=== PATIENT | female | born 1945 | race Caucasian/White ===

== ENCOUNTER → 2018-07-10 | Outpatient (CLI) | payer MEDICARE, OTHER ==
[2018-07-10 11:43] LABS: ALANINE AMINOTRANSFERASE 38 U/L (12-78); ALBUMIN 3.9 g/dL (3.4-5.0); ANION GAP 9 mmol/L (5-15); CALCIUM 9.8 mg/dL (8.5-10.1); CHLORIDE 97 mmol/L (98-107); CREATININE 0.53 mg/dL (0.55-1.02)
[2018-07-10 11:46] LABS: ALKALINE PHOSPHATASE 98 U/L (45-117); BILIRUBIN,TOTAL 0.4 mg/dL (0.2-1.0); TOTAL PROTEIN 7.9 g/dL (6.4-8.2)
== END | disposition home or self-care (01) ==
LOC: STAR 10:03
PROVIDERS: ATTEND Surgery
DX: Z01.818 Encounter for other preprocedural examination (principal)
CPT/HCPCS: 36415; 80053; 93005

== ENCOUNTER → 2018-07-14 | Outpatient (CLI) | payer MEDICARE, OTHER ==
[~2018-07-14] MED LIST: CHOL2000 PO; ESTR42.53 TP; FLAX1CAP PO; LOSA25TA5 PO; LUTE6TAB PO; MELO15TA24 PO; OMEG-14 PO; PLAN450C PO; REMIFEMIN PO; UBID100C24 PO; WOMEN PO; [UNRECOGNIZED DRUG - OTHER] EACHEYE; [UNRECOGNIZED DRUG - OTHER] PO
== END | disposition home or self-care (01) ==
LOC: RAD 11:42
PROVIDERS: ATTEND Surgery
DX: E21.0 Primary hyperparathyroidism (principal); I10 Essential (primary) hypertension; M85.80 Other specified disorders of bone density and structure, unspecified site; Z87.891 Personal history of nicotine dependence; Z80.3 Family history of malignant neoplasm of breast
CPT/HCPCS: 78070; A9500

== ENCOUNTER 2018-09-06 14:23 | Inpatient (IN) | payer MEDICARE, OTHER ==
[~2018-09-06] VITALS: Ht 157.5 cm; Wt 57.1 kg
[~2018-09-06 14:23] MED LIST changes: +HYDR-3240 PO; -LOSA25TA5 PO; +LOSA25TA6 PO
[2018-09-06] MEDS ORDERED: ONDANSETRON 2MG/ML, 2ML IVPush ONE (15:30)
[2018-09-06] MEDS ORDERED: MAALOX/HYOSCYAMINE/LIDOCAINE 45 ML BTL PO ONE (15:30)
[2018-09-06] MEDS ORDERED: SODIUM CHLORIDE FLUSH 10ML SYR IVF ONE (15:30)
[2018-09-06] MEDS ORDERED: FAMOTIDINE 20 MG/2 ML IVP ONE (15:30)
[2018-09-06] MEDS ORDERED: SODIUM CHLORIDE 0.9% 1,000ML IVBOLUS ONE (15:30)
[2018-09-06] MEDS ORDERED: ONDANSETRON 2MG/ML, 2ML ONE (15:35)
[2018-09-06] MEDS ORDERED: FAMOTIDINE 20 MG/2 ML ONE (15:36)
[2018-09-06] MEDS ORDERED: MAALOX/HYOSCYAMINE/LIDOCAINE 45 ML BTL ONE (15:36)
[2018-09-06 15:38] LABS: BASOPHILS # (AUTO) 0.02 x10^3/uL (0-0.1); BASOPHILS % (AUTO) 0 % (0-1); EOSINOPHILS # (AUTO) 0.01 x10^3/uL (0-0.4); EOSINOPHILS % (AUTO) 0 % (1-7); LYMPHOCYTES # (AUTO) 0.88 x10^3/uL (1-3.4); LYMPHOCYTES % (AUTO) 9 % (22-44); MD NO; MEAN CORPUSCULAR HEMOGLOBIN 31.5 pg (27.0-34.8); MEAN CORPUSCULAR HGB CONC 33.6 g/dL (32.4-35.8); MEAN CORPUSCULAR VOLUME 93.7 fL (80-100); MEAN PLATELET VOLUME 7.9 fL (7.4-10.4); MONOCYTES % (AUTO) 10 % (2-9); NEUTROPHILS # (AUTO) 8.49 x10^3/uL (1.8-6.8); NEUTROPHILS % (AUTO) 82 % (42-75); PLATELET COUNT 403 x10^3/uL (130-400); RED BLOOD COUNT 4.72 x10^6/uL (3.82-5.3); RED CELL DISTRIBUTION WIDTH 12.2 % (9.6-15.2)
[2018-09-06 15:52] LABS: ALBUMIN 3.9 g/dL (3.4-5.0); ANION GAP 18 mmol/L (5-15); CHLORIDE 84 mmol/L (98-107)
[2018-09-06 15:56] LABS: ALANINE AMINOTRANSFERASE 28 U/L (12-78); ALKALINE PHOSPHATASE 71 U/L (45-117); BILIRUBIN,TOTAL 0.8 mg/dL (0.2-1.0); CREATININE 0.66 mg/dL (0.55-1.02); TOTAL PROTEIN 8.1 g/dL (6.4-8.2)
[2018-09-06] MEDS ORDERED: OMNIPAQUE 350 MG/ML, 100ML BOTTLE ONE (17:03)
[2018-09-06 17:48] LABS: MICROSCOPIC AUTO
[2018-09-06 17:50] LABS: CULTURE INDICATED? YES
[2018-09-06] MEDS ORDERED: LIDODERM 5% PATCH TD PRN (19:30)
[2018-09-06] MEDS ORDERED: hydrALAzine 20 MG/ML, 1ML IVPush PRN (19:30)
[2018-09-06] MEDS ORDERED: ACETAMINOPHEN 325 MG TABLET PO PRN (19:30)
[2018-09-06] MEDS ORDERED: LORazepam 2 MG/ML, 1ML IVPush PRN (19:30)
[2018-09-06 21:04] VITALS: BP 146/80
[2018-09-06] MEDS: SODIUM CHLORIDE 0.9% 1,000 ML IV SCH (23:06)
[2018-09-07 04:15] VITALS: BP 150/79
[2018-09-07 05:19] LABS: BASOPHILS # (AUTO) 0.01 x10^3/uL (0-0.1); BASOPHILS % (AUTO) 0 % (0-1); EOSINOPHILS # (AUTO) 0.01 x10^3/uL (0-0.4); EOSINOPHILS % (AUTO) 0 % (1-7); LYMPHOCYTES # (AUTO) 0.67 x10^3/uL (1-3.4); LYMPHOCYTES % (AUTO) 7 % (22-44); MD NO; MEAN CORPUSCULAR HEMOGLOBIN 32.1 pg (27.0-34.8); MEAN CORPUSCULAR HGB CONC 34.1 g/dL (32.4-35.8); MEAN CORPUSCULAR VOLUME 94.1 fL (80-100); MEAN PLATELET VOLUME 8.2 fL (7.4-10.4); MONOCYTES # (AUTO) 0.93 x10^3/uL (0.2-0.8); MONOCYTES % (AUTO) 10 % (2-9); NEUTROPHILS # (AUTO) 7.91 x10^3/uL (1.8-6.8); NEUTROPHILS % (AUTO) 83 % (42-75); PLATELET COUNT 365 x10^3/uL (130-400); RED CELL DISTRIBUTION WIDTH 12.4 % (9.6-15.2)
[2018-09-07 05:30] LABS: CALCIUM 8.4 mg/dL (8.5-10.1); CHLORIDE 92 mmol/L (98-107)
[2018-09-07 05:34] LABS: ANION GAP 18 mmol/L (5-15); CREATININE 0.64 mg/dL (0.55-1.02)
[2018-09-07 06:56] VITALS: BP 140/80
[2018-09-07] MEDS: SODIUM CHLORIDE 0.9% 1,000 ML IV SCH (07:22)
[2018-09-07] MEDS: KETOROLAC 30 MG/1 ML IV PRN ×2 (08:38→18:28)
[2018-09-07 10:17] VITALS: BP 145/81
[2018-09-07] MEDS: NS + 20MEQ KCL 1,000 ML IV SCH ×2 (10:25→21:00)
[2018-09-07] MEDS ORDERED: morphine SULFATE 10 MG/ML, 1ML IVPush PRN (12:00)
[2018-09-07 15:01] VITALS: BP 129/78
[2018-09-07 19:39] VITALS: BP 138/80
[2018-09-07] MEDS: BENZOCAINE 20% SPRAY 0.5ML TP PRN (22:36)
[2018-09-08 03:58] VITALS: BP 146/80
[2018-09-08] MEDS: KETOROLAC 30 MG/1 ML IV PRN ×2 (04:00→17:07)
[2018-09-08 04:42] LABS: BASOPHILS # (AUTO) 0.04 x10^3/uL (0-0.1); BASOPHILS % (AUTO) 1 % (0-1); EOSINOPHILS % (AUTO) 0 % (1-7); LYMPHOCYTES # (AUTO) 0.86 x10^3/uL (1-3.4); LYMPHOCYTES % (AUTO) 10 % (22-44); MD NO; MEAN CORPUSCULAR HEMOGLOBIN 31.8 pg (27.0-34.8); MEAN CORPUSCULAR HGB CONC 33.6 g/dL (32.4-35.8); MEAN CORPUSCULAR VOLUME 94.7 fL (80-100); MEAN PLATELET VOLUME 7.9 fL (7.4-10.4); MONOCYTES # (AUTO) 0.99 x10^3/uL (0.2-0.8); MONOCYTES % (AUTO) 12 % (2-9); NEUTROPHILS # (AUTO) 6.65 x10^3/uL (1.8-6.8); NEUTROPHILS % (AUTO) 78 % (42-75); PLATELET COUNT 352 x10^3/uL (130-400); RED CELL DISTRIBUTION WIDTH 12.9 % (9.6-15.2)
[2018-09-08 04:54] LABS: ANION GAP 15 mmol/L (5-15); CALCIUM 8.2 mg/dL (8.5-10.1); CHLORIDE 99 mmol/L (98-107)
[2018-09-08 04:55] LABS: CREATININE 0.59 mg/dL (0.55-1.02)
[2018-09-08] MEDS: BENZOCAINE 20% SPRAY 0.5ML TP PRN (05:45)
[2018-09-08] MEDS: NS + 20MEQ KCL 1,000 ML IV SCH (06:04)
[2018-09-08] MEDS: ONDANSETRON 2MG/ML, 2ML IVPush PRN (06:22)
[2018-09-08 07:53] VITALS: BP 144/78
[2018-09-08] MEDS ORDERED: PROPOFOL 10 MG/ML, 20ML ONE (12:31)
[2018-09-08] MEDS ORDERED: MORPHINE SULFATE 4 MG/ML, 1ML IVPush PRN (13:30)
[2018-09-08] MEDS ORDERED: PROMETHAZINE 25 MG SUPP PR PRN (13:30)
[2018-09-08] MEDS ORDERED: FENTANYL PF 100 MCG/2ML IV PRN (13:30)
[2018-09-08] MEDS ORDERED: MIDAZOLAM 1 MG/ML, 2ML IV PRN (13:30)
[2018-09-08] MEDS ORDERED: PROMETHAZINE 25 MG/ML, 1ML IM PRN (13:30)
[2018-09-08] MEDS ORDERED: ONDANSETRON 2MG/ML, 2ML IV PRN (13:30)
[2018-09-08] MEDS ORDERED: LABETALOL 5MG/ML, 20ML IV PRN (13:30)
[2018-09-08] MEDS ORDERED: EPHEDRINE 50 MG/ML, 1ML IVPush PRN (13:30)
[2018-09-08] MEDS ORDERED: PROMETHAZINE 12.5 MG SUPP PR PRN (13:30)
[2018-09-08] MEDS ORDERED: DIPHENHYDRAMINE 50 MG/ML, 1ML IVPush PRN (13:30)
[2018-09-08 13:39] VITALS: BP 157/80
[2018-09-08] MEDS ORDERED: PVN PER PHARMACY MC PRN (15:00)
[2018-09-08] MEDS ORDERED: NS + 20MEQ KCL 1,000 ML IV SCH (15:00)
[2018-09-08] MEDS ORDERED: SODIUM CHLORIDE 0.9% 1,000 ML IV SCH (16:00)
[2018-09-08] MEDS ORDERED: FILTER, DISP 1.2 MICRON FOR TPN/PVN IV PRN (16:00)
[2018-09-08] MEDS ORDERED: DEXTROSE 50%, 50ML SYRINGE IVPush PRN (17:00)
[2018-09-08] MEDS ORDERED: FAT EMUL IV SCH (17:00)
[2018-09-08] MEDS ORDERED: DEXTROSE 70% IV SCH (17:00)
[2018-09-08] MEDS ORDERED: AMINO ACID 10% IV SCH (17:00)
[2018-09-08] MEDS ORDERED: [UNRECOGNIZED DRUG - OTHER] IV SCH (17:00)
[2018-09-08] MEDS ORDERED: SMOF TPN IV SCH (17:00)
[2018-09-08] MEDS ORDERED: DEXTROSE 10% 500 ML IV PRN (17:00)
[2018-09-08 19:33] VITALS: BP 164/87
[2018-09-08] MEDS ORDERED: BENZOCAINE AEROSOL SPRAY 20%, 60ML TP PRN (20:00)
[2018-09-08] MEDS: INSULIN REGULAR LOW DOSE Q6H X 48HRS SQ-INSULIN SCH (22:13)
[2018-09-09 01:07] VITALS: BP 148/73
[2018-09-09] MEDS: KETOROLAC 30 MG/1 ML IV PRN (01:18)
[2018-09-09] MEDS: INSULIN REGULAR LOW DOSE Q6H X 48HRS SQ-INSULIN SCH ×4 (03:15→20:15)
[2018-09-09 04:47] LABS: ANION GAP 9 mmol/L (5-15); CALCIUM 8.4 mg/dL (8.5-10.1); CHLORIDE 101 mmol/L (98-107); CREATININE 0.68 mg/dL (0.55-1.02); TRIGLYCERIDES 96 mg/dL (50-200)
[2018-09-09 04:53] LABS: PREALBUMIN 6.3 mg/dL (20.0-40.0)
[2018-09-09 07:20] VITALS: BP 147/84
[2018-09-09 13:15] VITALS: BP 144/88
[2018-09-09] MEDS ORDERED: POTASSIUM CHLORIDE 40 MEQ in SODIUM CHLORIDE 0.9% 500 ML IV ONE (14:30)
[2018-09-09] MEDS ORDERED: DEXTROSE 70% IV SCH (17:00)
[2018-09-09] MEDS ORDERED: SMOF TPN IV SCH (17:00)
[2018-09-09] MEDS ORDERED: FAT EMUL IV SCH (17:00)
[2018-09-09] MEDS ORDERED: AMINO ACID 10% IV SCH (17:00)
[2018-09-09] MEDS ORDERED: [UNRECOGNIZED DRUG - OTHER] IV SCH (17:00)
[2018-09-09] MEDS: FILTER, DISP 1.2 MICRON FOR TPN/PVN IV PRN (18:11)
[2018-09-09 19:58] VITALS: BP 147/80
[2018-09-10 01:45] VITALS: BP 136/72
[2018-09-10] MEDS: INSULIN REGULAR LOW DOSE Q6H X 48HRS SQ-INSULIN SCH ×3 (03:00→19:20)
[2018-09-10] MEDS: KETOROLAC 30 MG/1 ML IV PRN ×2 (03:30→10:13)
[2018-09-10 05:09] LABS: ANION GAP 9 mmol/L (5-15); CHLORIDE 98 mmol/L (98-107); CREATININE 0.58 mg/dL (0.55-1.02)
[2018-09-10] MEDS: ONDANSETRON 2MG/ML, 2ML IVPush PRN (05:24)
[2018-09-10 07:27] VITALS: BP 125/79
[2018-09-10 13:10] VITALS: BP 131/83
[2018-09-10] MEDS ORDERED: BUPIVACAINE/PF 0.5% ONE (15:18)
[2018-09-10] MEDS ORDERED: EPINEPHRINE 1 MG/ML, 1ML ONE (15:18)
[2018-09-10] MEDS ORDERED: METHYLENE BLUE 10 MG/ML 10ML ONE (15:19)
[2018-09-10] MEDS ORDERED: FENTANYL PF 250 MCG/5ML ONE (16:07)
[2018-09-10] MEDS ORDERED: MIDAZOLAM 1 MG/ML, 2ML ONE (16:07)
[2018-09-10] MEDS ORDERED: PROPOFOL 10 MG/ML, 20ML ONE (16:08)
[2018-09-10] MEDS ORDERED: ROCURONIUM 10MG/ML,5ML ONE (16:08)
[2018-09-10] MEDS ORDERED: NEOSTIGMINE 1 MG/ML, 10ML ONE (16:09)
[2018-09-10] MEDS ORDERED: GLYCOPYRROLATE 0.4 MG/2 ML, 2ML ONE ×2 (16:09→17:20)
[2018-09-10] MEDS ORDERED: SODIUM CHLORIDE 0.9% PF 10ML ONE (16:10)
[2018-09-10] MEDS ORDERED: ONDANSETRON 2MG/ML, 2ML ONE (16:10)
[2018-09-10] MEDS ORDERED: CEFAZOLIN 1,000 MG ONE ×2 (16:10)
[2018-09-10] MEDS ORDERED: DEXAMETHASONE 4 MG/ML, 1ML ONE ×2 (16:10)
[2018-09-10] MEDS ORDERED: SUCCINYLCHOLINE 20 MG/ML, 10ML ONE (16:25)
[2018-09-10] MEDS ORDERED: ONDANSETRON ODT 8 MG PO PRN (16:30)
[2018-09-10] MEDS ORDERED: ONDANSETRON 2MG/ML, 2ML IV PRN (16:30)
[2018-09-10] MEDS ORDERED: OXYcodone 5 MG/5 ML ORAL.SOL UDC PO PRN (16:30)
[2018-09-10] MEDS ORDERED: PROMETHAZINE 12.5 MG SUPP PR PRN (16:30)
[2018-09-10] MEDS ORDERED: PROMETHAZINE 25 MG SUPP PR PRN (16:30)
[2018-09-10] MEDS ORDERED: MORPHINE SULFATE 4 MG/ML, 1ML IVPush PRN (16:30)
[2018-09-10] MEDS ORDERED: PROMETHAZINE 25 MG/ML, 1ML IV PRN (16:30)
[2018-09-10] MEDS ORDERED: LABETALOL 5MG/ML, 20ML IV PRN (16:30)
[2018-09-10] MEDS ORDERED: FENTANYL PF 100 MCG/2ML IV PRN (16:30)
[2018-09-10] MEDS ORDERED: PROMETHAZINE 25 MG/ML, 1ML IM PRN ×2 (16:30)
[2018-09-10] MEDS ORDERED: MEPERIDINE/PF 25MG/0.5ML IVPush PRN (16:30)
[2018-09-10] MEDS ORDERED: HYDROmorphone 1 MG/ML, 1ML IV PRN (16:30)
[2018-09-10] MEDS ORDERED: hydrALAzine 20 MG/ML, 1ML IV PRN (16:30)
[2018-09-10] MEDS ORDERED: CEFOTETAN PMX 2GM/50ML 50 ML ONE (16:45)
[2018-09-10] MEDS ORDERED: SMOF TPN IV SCH (17:00)
[2018-09-10] MEDS ORDERED: DEXTROSE 70% IV SCH (17:00)
[2018-09-10] MEDS ORDERED: AMINO ACID 10% IV SCH (17:00)
[2018-09-10] MEDS ORDERED: FAT EMUL IV SCH (17:00)
[2018-09-10] MEDS ORDERED: [UNRECOGNIZED DRUG - OTHER] IV SCH (17:00)
[2018-09-10] MEDS ORDERED: HYDROmorphone 2 MG/ML, 1ML ONE (17:57)
[2018-09-10 19:36] VITALS: BP 133/84
[2018-09-10] MEDS: INSULIN REGULAR LOW DOSE QDAY SQ-INSULIN SCH (22:27)
[2018-09-11 01:35] VITALS: BP 110/75
[2018-09-11] MEDS: KETOROLAC 30 MG/1 ML IV PRN ×2 (03:55→10:39)
[2018-09-11 05:51] LABS: ANION GAP 7 mmol/L (5-15); CALCIUM 8.1 mg/dL (8.5-10.1); CHLORIDE 96 mmol/L (98-107)
[2018-09-11 07:50] VITALS: BP 122/79
[2018-09-11 13:34] VITALS: BP 119/79
[2018-09-11] MEDS ORDERED: [UNRECOGNIZED DRUG - OTHER] IV SCH (17:00)
[2018-09-11] MEDS ORDERED: SMOF TPN IV SCH (17:00)
[2018-09-11] MEDS ORDERED: AMINO ACID 10% IV SCH (17:00)
[2018-09-11] MEDS ORDERED: FAT EMUL IV SCH (17:00)
[2018-09-11] MEDS ORDERED: DEXTROSE 70% IV SCH (17:00)
[2018-09-11] MEDS: FILTER, DISP 1.2 MICRON FOR TPN/PVN IV PRN (18:47)
[2018-09-11 20:42] VITALS: BP 122/82
[2018-09-11] MEDS: INSULIN REGULAR LOW DOSE QDAY SQ-INSULIN SCH (21:27)
[2018-09-12 02:50] VITALS: BP 144/82
[2018-09-12 05:56] LABS: ANION GAP 7 mmol/L (5-15); CHLORIDE 100 mmol/L (98-107)
[2018-09-12 05:57] LABS: CREATININE 0.52 mg/dL (0.55-1.02)
[2018-09-12 07:33] VITALS: BP 131/79
[2018-09-12] MEDS ORDERED: PANTOPROZOLE 40MG TABLET PO ONE (12:00)
[2018-09-12 14:19] VITALS: BP 148/83
[2018-09-12] MEDS ORDERED: FAT EMUL IV SCH (17:00)
[2018-09-12] MEDS ORDERED: AMINO ACID 10% IV SCH (17:00)
[2018-09-12] MEDS ORDERED: [UNRECOGNIZED DRUG - OTHER] IV SCH (17:00)
[2018-09-12] MEDS ORDERED: DEXTROSE 70% IV SCH (17:00)
[2018-09-12] MEDS ORDERED: SMOF TPN IV SCH (17:00)
[2018-09-12] MEDS: FILTER, DISP 1.2 MICRON FOR TPN/PVN IV PRN (18:33)
[2018-09-12] MEDS: MAALOX/HYOSCYAMINE/LIDOCAINE 45 ML BTL PO PRN (20:25)
[2018-09-12 20:41] VITALS: BP 143/84
[2018-09-12] MEDS: DOCUSATE 100 MG CAPSULE PO SCH (21:51)
[2018-09-12] MEDS: INSULIN REGULAR LOW DOSE QDAY SQ-INSULIN SCH (21:51)
[2018-09-13 01:07] VITALS: BP 143/82
[2018-09-13] MEDS: MAALOX/HYOSCYAMINE/LIDOCAINE 45 ML BTL PO PRN ×2 (04:19→18:54)
[2018-09-13 04:45] LABS: ANION GAP 8 mmol/L (5-15); CALCIUM 8.2 mg/dL (8.5-10.1); CHLORIDE 102 mmol/L (98-107)
[2018-09-13 04:46] LABS: CREATININE 0.47 mg/dL (0.55-1.02)
[2018-09-13 06:22] VITALS: BP 125/77
[2018-09-13] MEDS: DOCUSATE 100 MG CAPSULE PO SCH ×2 (08:01→21:02)
[2018-09-13 13:55] VITALS: BP 131/74
[2018-09-13] MEDS ORDERED: FAT EMUL IV SCH (17:00)
[2018-09-13] MEDS ORDERED: AMINO ACID 10% IV SCH (17:00)
[2018-09-13] MEDS ORDERED: SMOF TPN IV SCH (17:00)
[2018-09-13] MEDS ORDERED: [UNRECOGNIZED DRUG - OTHER] IV SCH (17:00)
[2018-09-13] MEDS ORDERED: DEXTROSE 70% IV SCH (17:00)
[2018-09-13 20:31] VITALS: BP 129/81
[2018-09-14 01:09] VITALS: BP 135/84
[2018-09-14 04:49] LABS: CHLORIDE 104 mmol/L (98-107)
[2018-09-14 04:56] LABS: ALANINE AMINOTRANSFERASE 43 U/L (12-78); ALBUMIN 2.5 g/dL (3.4-5.0); ALKALINE PHOSPHATASE 116 U/L (45-117); ANION GAP 9 mmol/L (5-15); BILIRUBIN,TOTAL 0.4 mg/dL (0.2-1.0); CALCIUM 8.2 mg/dL (8.5-10.1); CREATININE 0.55 mg/dL (0.55-1.02); PREALBUMIN 13.9 mg/dL (20.0-40.0); TOTAL PROTEIN 5.9 g/dL (6.4-8.2)
[2018-09-14 08:15] VITALS: BP 112/74
[2018-09-14] MEDS: DOCUSATE 100 MG CAPSULE PO SCH ×2 (09:00→20:13)
[2018-09-14] MEDS: SENNOSIDES 8.6 MG TABLET PO SCH (13:00)
[2018-09-14 13:38] VITALS: BP 122/82
[2018-09-14 20:55] VITALS: BP 129/83
[2018-09-15 01:39] VITALS: BP 125/83
[2018-09-15 07:54] VITALS: BP 125/76
[2018-09-15] MEDS: SENNOSIDES 8.6 MG TABLET PO SCH (09:00)
[2018-09-15] MEDS: DOCUSATE 100 MG CAPSULE PO SCH ×2 (09:15→21:00)
[2018-09-15 15:20] VITALS: BP 134/84
[2018-09-15 19:55] VITALS: BP 141/87
[2018-09-16 04:48] VITALS: BP 134/82
[2018-09-16 08:25] VITALS: BP 141/76
[2018-09-16] MEDS ORDERED: SENN-99 PO (09:11)
[2018-09-16] MEDS ORDERED: DOCU-131 PO (09:11)
[2018-09-16] MEDS: SENNOSIDES 8.6 MG TABLET PO SCH (09:49)
[2018-09-16] MEDS: DOCUSATE 100 MG CAPSULE PO SCH (09:49)
[2018-09-16] MEDS ORDERED: FUROSEMIDE 20 MG/2 ML ONE (13:28)
[2018-09-16] MEDS ORDERED: ESOM40SU PO (14:37)
[2018-09-16 16:23] VITALS: BP 136/82
[2018-09-23] MEDS ORDERED: DEXA4TAB66 PO (08:50)
== END 2018-09-16 19:00 | disposition home health service (06) | DRG 326 ==
LOC: ED 17:11 → EDIP 19:28 → 4NOR 20:50 → 3NW 09-07 10:05
PROVIDERS: ADMIT Internal Medicine; ATTEND Family Medicine
PROC: 0DB98ZX Excision of Duodenum, Via Natural or Artificial Opening Endoscopic, Diagnostic (ICD-10-PCS; 2018-09-08)
PROC: 0D968ZZ Drainage of Stomach, Via Natural or Artificial Opening Endoscopic (ICD-10-PCS; 2018-09-08)
PROC: 0DBU4ZX Excision of Omentum, Percutaneous Endoscopic Approach, Diagnostic (ICD-10-PCS; 2018-09-10)
PROC: 0D164ZA Bypass Stomach to Jejunum, Percutaneous Endoscopic Approach (ICD-10-PCS; principal; 2018-09-10 16:30)
DX: C78.6 Secondary malignant neoplasm of retroperitoneum and peritoneum (principal); R65.11 Systemic inflammatory response syndrome (SIRS) of non-infectious origin with acute organ dysfunction; C56.9 Malignant neoplasm of unspecified ovary; K31.5 Obstruction of duodenum; E87.1 Hypo-osmolality and hyponatremia; E46 Unspecified protein-calorie malnutrition; N13.30 Unspecified hydronephrosis; K31.1 Adult hypertrophic pyloric stenosis; E87.6 Hypokalemia; I11.9 Hypertensive heart disease without heart failure; K21.9 Gastro-esophageal reflux disease without esophagitis; K29.00 Acute gastritis without bleeding; Z80.3 Family history of malignant neoplasm of breast; Z87.891 Personal history of nicotine dependence; Z68.23 Body mass index [BMI] 23.0-23.9, adult; J30.2 Other seasonal allergic rhinitis
CPT/HCPCS: 36415; 74018; 74177; 78708; 80048; 80053; 81001; 82962; 83690; 83735; 84100; 84134; 84478; 85025; 86304; 86677; 87086; 88305; 88341; 88342; 96361; 96365; 96375; 99285; G0378; J0171; J0610; J0690; J1100; J1170; J1644; J1815; J1885; J2250; J2405; J2704; J2710; J3010; J3475; J3480; J3490; Q9967; A9562; C9898; G0461; J0330; J1720; J1940; J3420; J7030; J7040; Q9968; S0028; S0074

== ENCOUNTER → 2018-09-30 | Outpatient (CLI) | payer MEDICARE, OTHER ==
[~2018-09-30] MED LIST changes: +DEXA4TAB66 PO; +DOCU-131 PO; +ESOM40SU PO; +SENN-99 PO
[2018-09-30 11:51] LABS: BASOPHILS # (AUTO) 0.01 x10^3/uL (0-0.1); BASOPHILS % (AUTO) 0 % (0-1); EOSINOPHILS % (AUTO) 5 % (1-7); LYMPHOCYTES # (AUTO) 0.68 x10^3/uL (1-3.4); LYMPHOCYTES % (AUTO) 15 % (22-44); MD NO; MEAN CORPUSCULAR HEMOGLOBIN 32.1 pg (27.0-34.8); MEAN CORPUSCULAR HGB CONC 33.9 g/dL (32.4-35.8); MEAN CORPUSCULAR VOLUME 94.7 fL (80-100); MEAN PLATELET VOLUME 7.2 fL (7.4-10.4); MONOCYTES # (AUTO) 0.13 x10^3/uL (0.2-0.8); MONOCYTES % (AUTO) 3 % (2-9); NEUTROPHILS # (AUTO) 3.44 x10^3/uL (1.8-6.8); NEUTROPHILS % (AUTO) 77 % (42-75); PLATELET COUNT 351 x10^3/uL (130-400); RED BLOOD COUNT 3.75 x10^6/uL (3.82-5.3); RED CELL DISTRIBUTION WIDTH 13.1 % (9.6-15.2)
== END | disposition home or self-care (01) ==
LOC: LAB 11:28
PROVIDERS: ATTEND Specialist
DX: C56.9 Malignant neoplasm of unspecified ovary (principal)
CPT/HCPCS: 36415; 85025

== ENCOUNTER → 2019-01-26 | Outpatient (CLI) | payer MEDICARE, OTHER ==
[~2019-01-26] MED LIST changes: +LOSA25TA25 PO; -LOSA25TA6 PO; +OMEP-110 PO
== END | disposition home or self-care (01) ==
LOC: CFH 11:06
PROVIDERS: ATTEND Family Medicine
DX: Z51.11 Encounter for antineoplastic chemotherapy (principal); C48.2 Malignant neoplasm of peritoneum, unspecified; C76.2 Malignant neoplasm of abdomen; K76.9 Liver disease, unspecified; J98.11 Atelectasis; J90 Pleural effusion, not elsewhere classified
CPT/HCPCS: 71250; 74176

== ENCOUNTER 2019-06-02 09:50 | Outpatient (CLI) | payer MEDICARE, OTHER | END 2019-06-02 23:59 | disposition home or self-care (01) | LOC: LAB 09:50 | PROVIDERS: ATTEND Specialist | DX: R30.0 Dysuria (principal) | CPT/HCPCS: 87077; 87086; 87186 ==

== ENCOUNTER 2019-06-26 09:50 | Emergency (ER) | payer MEDICARE, OTHER ==
[~2019-06-26] VITALS: Ht 157.5 cm; Wt 58.6 kg
[2019-06-26 09:52] VITALS: BP 152/74
== END 2019-06-26 11:41 | disposition home or self-care (01) ==
LOC: ED 11:40
DX: L03.113 Cellulitis of right upper limb (principal); I10 Essential (primary) hypertension; Z85.43 Personal history of malignant neoplasm of ovary
CPT/HCPCS: 36415; 80053; 85025; 99284

== ENCOUNTER 2019-08-23 14:01 | Outpatient (CLI) | payer MEDICARE, OTHER ==
[2019-08-23 14:16] LABS: BASOPHILS # (AUTO) 0.03 x10^3/uL (0-0.1); BASOPHILS % (AUTO) 0 % (0-1); EOSINOPHILS # (AUTO) 0.08 x10^3/uL (0-0.4); EOSINOPHILS % (AUTO) 1 % (1-7); LYMPHOCYTES # (AUTO) 1.27 x10^3/uL (1-3.4); LYMPHOCYTES % (AUTO) 12 % (22-44); MD NO; MEAN CORPUSCULAR HEMOGLOBIN 31.2 pg (27.0-34.8); MEAN CORPUSCULAR HGB CONC 32.4 g/dL (32.4-35.8); MEAN CORPUSCULAR VOLUME 96.3 fL (80-100); MEAN PLATELET VOLUME 6.2 fL (7.4-10.4); MONOCYTES # (AUTO) 1.16 x10^3/uL (0.2-0.8); MONOCYTES % (AUTO) 11 % (2-9); NEUTROPHILS # (AUTO) 7.83 x10^3/uL (1.8-6.8); NEUTROPHILS % (AUTO) 76 % (42-75); PLATELET COUNT 645 x10^3/uL (130-400); RED BLOOD COUNT 4.09 x10^6/uL (3.82-5.3)
[2019-08-23 14:28] LABS: INTERNATIONAL NORMALIZED RATIO 1.05 (0.93-1.1)
[2019-08-23 14:30] LABS: ALANINE AMINOTRANSFERASE 13 U/L (12-78); ANION GAP 6 mmol/L (5-15); CALCIUM 8.4 mg/dL (8.5-10.1); CHLORIDE 99 mmol/L (98-107); CREATININE 0.51 mg/dL (0.55-1.02)
[2019-08-23 14:32] LABS: ALKALINE PHOSPHATASE 73 U/L (45-117); BILIRUBIN,TOTAL 0.3 mg/dL (0.2-1.0); TOTAL PROTEIN 7.2 g/dL (6.4-8.2)
[2019-08-27] MEDS ORDERED: FURO-93 PO (12:32)
[2019-08-27] MEDS ORDERED: CITA10TA8 PO (12:32)
[2019-08-27] MEDS ORDERED: TRAM50TA2 PO (12:32)
[2019-08-28] MEDS ORDERED: METO25TA35 PO (10:51)
== END 2019-08-23 23:59 | disposition home or self-care (01) ==
LOC: LAB 14:01
PROVIDERS: ATTEND Nurse Practitioner Acute Care
DX: Z01.818 Encounter for other preprocedural examination (principal); C48.2 Malignant neoplasm of peritoneum, unspecified; I10 Essential (primary) hypertension; R06.02 Shortness of breath
CPT/HCPCS: 36415; 80053; 85025; 85610; 85730

== ENCOUNTER 2019-08-30 06:49 | Day surgery (SDC) | payer MEDICARE, OTHER ==
[~2019-08-30] VITALS: Ht 157.5 cm; Wt 57.2 kg
[~2019-08-30 06:49] MED LIST changes: +CITA10TA8 PO; +FURO-93 PO; +METO25TA35 PO; +TRAM50TA2 PO
[2019-08-30 07:32] VITALS: BP 139/71
[2019-08-30] MEDS ORDERED: LACTATED RINGERS 1,000 ML IV SCH (07:39)
[2019-08-30] MEDS ORDERED: APREPITANT 40 MG CAPSULE PO STA (07:39)
[2019-08-30] MEDS ORDERED: LIDOCAINE-MPF 1%, 2ML INFIL ONE (08:00)
[2019-08-30] MEDS ORDERED: BUPIVACAINE/PF 0.25% ONE (09:55)
[2019-08-30] MEDS ORDERED: EPINEPHRINE 1 MG/ML, 1ML ONE (09:56)
[2019-08-30] MEDS ORDERED: HEPARIN 1,000 UNITS/ML, 10ML ONE (09:56)
[2019-08-30] MEDS ORDERED: LIDOCAINE 2% 100MG/5ML SYRINGE ONE (11:36)
[2019-08-30] MEDS ORDERED: ROCURONIUM 10MG/ML,5ML ONE (11:36)
[2019-08-30] MEDS ORDERED: FENTANYL PF 100 MCG/2ML ONE (11:36)
[2019-08-30] MEDS ORDERED: SUGAMMADEX 200 MG/2 ML IVPush ONE (11:36)
[2019-08-30] MEDS ORDERED: SUCCINYLCHOLINE 20 MG/ML, 10ML ONE (11:36)
[2019-08-30] MEDS ORDERED: CEFAZOLIN 1,000 MG ONE (11:36)
[2019-08-30] MEDS ORDERED: PROPOFOL 10 MG/ML, 20ML ONE (11:36)
[2019-08-30] MEDS ORDERED: ONDANSETRON 2MG/ML, 2ML ONE (12:56)
[2019-08-30] MEDS ORDERED: OXYcodone 5 MG/5 ML ORAL.SOL UDC ONE (13:06)
[2019-08-30] MEDS ORDERED: ONDANSETRON 2MG/ML, 2ML IVPush ONE (13:30)
[2019-08-30] MEDS ORDERED: OXYcodone 5 MG/5 ML ORAL.SOL UDC PO PRN (13:30)
== END 2019-08-30 15:15 | disposition home or self-care (01) ==
LOC: OUT 06:49
PROVIDERS: ATTEND Specialist
DX: Z45.2 Encounter for adjustment and management of vascular access device (principal); C56.9 Malignant neoplasm of unspecified ovary; C48.2 Malignant neoplasm of peritoneum, unspecified; I10 Essential (primary) hypertension; F15.90 Other stimulant use, unspecified, uncomplicated; Z79.891 Long term (current) use of opiate analgesic; Z79.899 Other long term (current) drug therapy; Z98.890 Other specified postprocedural states; Z80.3 Family history of malignant neoplasm of breast; Z93.4 Other artificial openings of gastrointestinal tract status; Z98.49 Cataract extraction status, unspecified eye; Z90.49 Acquired absence of other specified parts of digestive tract; Z87.891 Personal history of nicotine dependence; Z96.1 Presence of intraocular lens
CPT/HCPCS: 36561; 71045; 77001; C1788; J0171; J0330; J0690; J1644; J2405; J2704; J3010; J3490; J7120; J8501

== ENCOUNTER 2019-09-23 10:52 | Emergency (ER) | payer MEDICARE, OTHER ==
[~2019-09-23] VITALS: Ht 157.5 cm; Wt 56.0 kg
[2019-09-23] MEDS ORDERED: LIDOCAINE 1%, 10ML ONE (11:55)
[2019-09-23 14:11] VITALS: BP 152/72
--- NOTE | 2019-09-23 14:22 | NUR ---
report received from SOTERO Kevin. thoracentesis performed, tolerated well. site to right lower thorax dressed in IR with tegaderm/gauze, CDI. pt reports her sob has resolved. pt denies pain. pt awake, alert and oriented, resps even and unlabored. pt given dc instructions. pt amb to dc desk with own walker, gait steady, accompanied by caregiver. heena at dc.
== END 2019-09-23 14:19 | disposition home or self-care (01) ==
LOC: ED 13:43
DX: J90 Pleural effusion, not elsewhere classified (principal); R00.0 Tachycardia, unspecified; I10 Essential (primary) hypertension; Z87.891 Personal history of nicotine dependence; Z85.43 Personal history of malignant neoplasm of ovary
CPT/HCPCS: 32555; 71046; 93005; 99285; J3490

== ENCOUNTER 2019-10-23 16:15 | Emergency (ER) | payer MEDICARE, OTHER ==
[~2019-10-23] VITALS: Ht 157.5 cm; Wt 52.8 kg
[2019-10-23] MEDS ORDERED: ONDANSETRON 2MG/ML, 2ML ONE (17:16)
[2019-10-23] MEDS ORDERED: SODIUM CHLORIDE FLUSH 10ML SYR IVF ONE (17:30)
[2019-10-23] MEDS ORDERED: ONDANSETRON 2MG/ML, 2ML IVPush ONE (17:30)
[2019-10-23] MEDS ORDERED: SODIUM CHLORIDE 0.9% 1,000ML IVBOLUS ONE (17:30)
[2019-10-23 17:57] LABS: ALBUMIN 3.3 g/dL (3.4-5.0); ANION GAP 8 mmol/L (5-15); CALCIUM 8.7 mg/dL (8.5-10.1); CHLORIDE 100 mmol/L (98-107)
[2019-10-23 18:00] VITALS: BP 159/86
--- NOTE | 2019-10-23 18:00 | NUR ---
PT UPRIGHT ON GURNEY AWAKE & COMFORTABLE, RESPONDS APPROP TO STAFF, NAD, COMFORT MEASURES PROVIDED, CAREGIVER AT BS, CALL LIGHT WITHIN REACH.
[2019-10-23 18:01] LABS: ALANINE AMINOTRANSFERASE 68 U/L (12-78); ALKALINE PHOSPHATASE 346 U/L (45-117); BILIRUBIN,TOTAL 0.9 mg/dL (0.2-1.0); CREATININE 0.63 mg/dL (0.55-1.02); TOTAL PROTEIN 8.3 g/dL (6.4-8.2)
[2019-10-23 18:13] LABS: BASOPHILS # (AUTO) 0.01 x10^3/uL (0-0.1); BASOPHILS % (AUTO) 0 % (0-1); EOSINOPHILS # (AUTO) 0.07 x10^3/uL (0-0.4); EOSINOPHILS % (AUTO) 1 % (1-7); LYMPHOCYTES # (AUTO) 0.34 x10^3/uL (1-3.4); LYMPHOCYTES % (AUTO) 6 % (22-44); MD SCAN; MEAN CORPUSCULAR HEMOGLOBIN 30.1 pg (27.0-34.8); MEAN CORPUSCULAR HGB CONC 32.8 g/dL (32.4-35.8); MEAN CORPUSCULAR VOLUME 91.8 fL (80-100); MEAN PLATELET VOLUME 7.3 fL (7.4-10.4); MONOCYTES # (AUTO) 0.03 x10^3/uL (0.2-0.8); MONOCYTES % (AUTO) 1 % (2-9); NEUTROPHILS # (AUTO) 5.19 x10^3/uL (1.8-6.8); NEUTROPHILS % (AUTO) 92 % (42-75); PLATELET COUNT 160 x10^3/uL (130-400); RED BLOOD COUNT 3.24 x10^6/uL (3.82-5.3); RED CELL DISTRIBUTION WIDTH 17.9 % (9.6-15.2)
--- NOTE | 2019-10-23 18:25 | NUR ---
PT GIVEN WATER FOR PO CHALLENGE
--- NOTE | 2019-10-23 18:45 | NUR ---
PT TOLERATED FLUIDS W/O NV.
--- NOTE | 2019-10-23 18:46 | NUR ---
Patient given discharge instructions and they have confirmed that they understand the instructions. Patient ambulatory with steady gait.
--- NOTE | 2019-10-23 18:54 | NUR ---
REPORT GIVEN TO KENRICK
== END 2019-10-23 19:41 | disposition home or self-care (01) ==
LOC: ED 17:46
DX: R11.2 Nausea with vomiting, unspecified (principal); R10.84 Generalized abdominal pain; I10 Essential (primary) hypertension; R00.0 Tachycardia, unspecified; Z87.891 Personal history of nicotine dependence
CPT/HCPCS: 36415; 80053; 85025; 93005; 96361; 96374; 99284; J2405; J7030

== ENCOUNTER → 2019-12-27 | Outpatient (CLI) | payer MEDICARE, OTHER ==
[~2019-12-27] MED LIST changes: +OMNIPAQUE 350 MG/ML, 100ML BOTTLE ONE
== END | disposition home or self-care (01) ==
LOC: CFH 08:03
PROVIDERS: ATTEND Physician Assistant
DX: C76.2 Malignant neoplasm of abdomen (principal); C48.2 Malignant neoplasm of peritoneum, unspecified; C56.9 Malignant neoplasm of unspecified ovary; R97.1 Elevated cancer antigen 125 [CA 125]; J90 Pleural effusion, not elsewhere classified; J98.11 Atelectasis; J98.4 Other disorders of lung; Z51.11 Encounter for antineoplastic chemotherapy; Z87.412 Personal history of vulvar dysplasia
CPT/HCPCS: 71260; 74177; Q9967

== ENCOUNTER 2020-06-06 14:08 | Outpatient (CLI) | payer MEDICARE, OTHER ==
[~2020-06-06 14:08] MED LIST changes: +LEVO750T26 PO; -OMNIPAQUE 350 MG/ML, 100ML BOTTLE ONE; +PROC10TA78 PO; +PROM25TA10 PO
[2020-06-06] MEDS ORDERED: OMNIPAQUE 350 MG/ML, 100ML BOTTLE ONE (16:15)
== END 2020-06-06 23:59 | disposition home or self-care (01) ==
LOC: CFH 14:08
PROVIDERS: ATTEND Nurse Practitioner Acute Care
DX: Z51.11 Encounter for antineoplastic chemotherapy (principal); C76.2 Malignant neoplasm of abdomen; C56.9 Malignant neoplasm of unspecified ovary; C48.2 Malignant neoplasm of peritoneum, unspecified; R09.82 Postnasal drip; J98.4 Other disorders of lung; R22.2 Localized swelling, mass and lump, trunk; J90 Pleural effusion, not elsewhere classified
CPT/HCPCS: 71260; 74177; Q9967

== ENCOUNTER 2020-08-08 11:34 | Outpatient (CLI) | payer MEDICARE, OTHER ==
[2020-08-08] MEDS ORDERED: OMNIPAQUE 350 MG/ML, 100ML BOTTLE ONE (13:16)
== END 2020-08-08 23:59 | disposition home or self-care (01) ==
LOC: CFH 11:34
PROVIDERS: ATTEND Physician Assistant
DX: Z51.11 Encounter for antineoplastic chemotherapy (principal); C76.2 Malignant neoplasm of abdomen; C48.2 Malignant neoplasm of peritoneum, unspecified; C56.9 Malignant neoplasm of unspecified ovary; R09.82 Postnasal drip; K21.9 Gastro-esophageal reflux disease without esophagitis; J90 Pleural effusion, not elsewhere classified; J84.10 Pulmonary fibrosis, unspecified; R91.1 Solitary pulmonary nodule; L72.3 Sebaceous cyst
CPT/HCPCS: 71260; 74177; Q9967

== ENCOUNTER → 2020-10-19 | Outpatient (CLI) | payer MEDICARE, OTHER ==
[~2020-10-19] MED LIST changes: +LIDOCAINE 1%, 10ML ONE
== END | disposition home or self-care (01) ==
LOC: RAD 09:06
PROVIDERS: ATTEND Nurse Practitioner Acute Care
DX: J91.0 Malignant pleural effusion (principal); C56.9 Malignant neoplasm of unspecified ovary; C48.2 Malignant neoplasm of peritoneum, unspecified; K21.9 Gastro-esophageal reflux disease without esophagitis
CPT/HCPCS: 32555; 82150; 82945; 83615; 83986; 84157; 87015; 87070; 87075; 87102; 87116; 87205; 87206; 88112; 88305; 88341; 88342; 89051

== ENCOUNTER → 2020-12-19 | Outpatient (CLI) | payer MEDICARE, OTHER ==
[~2020-12-19] MED LIST changes: +HYDR-1067 PO; -HYDR-3240 PO; -LIDOCAINE 1%, 10ML ONE
== END | disposition home or self-care (01) ==
LOC: RAD 13:25
PROVIDERS: ATTEND Nurse Practitioner Acute Care
DX: C56.9 Malignant neoplasm of unspecified ovary (principal); C48.2 Malignant neoplasm of peritoneum, unspecified; C76.2 Malignant neoplasm of abdomen; K21.9 Gastro-esophageal reflux disease without esophagitis; R97.1 Elevated cancer antigen 125 [CA 125]
CPT/HCPCS: 78472; A9560; J1642